=== PATIENT | male | born 1965 | race Caucasian/White ===

== ENCOUNTER 2023-05-01 15:17 | Emergency (ER) | payer OTHER ==
[~2023-05-01] VITALS: Ht 180.3 cm; Wt 90.8 kg
[2023-05-01 16:04] VITALS: BP 121/94; PULSE 84; RESP 18; TEMP 98; O2SAT 94
[2023-05-01] MEDS ORDERED: FLUORESCEIN SOD OPTH TEST STRIP OP ONE (16:15)
[2023-05-01] MEDS ORDERED: CIPR0.3S67 OP (16:27)
== END 2023-05-01 16:31 | disposition home or self-care (01) ==
LOC: ER 15:17
DX: T15.01XA Foreign body in cornea, right eye, initial encounter (principal); H10.31 Unspecified acute conjunctivitis, right eye; X58.XXXA Exposure to other specified factors, initial encounter; Y93.89 Activity, other specified; Y92.89 Other specified places as the place of occurrence of the external cause; Y99.8 Other external cause status
CPT/HCPCS: 65220